=== PATIENT | male | born 1990 | race Caucasian/White ===

== ENCOUNTER 2020-12-04 07:49 | Outpatient (RCR) | payer OTHER, SELFPAY ==
--- NOTE | 2020-12-04 12:34 | MHC.PT.EP ---
[facility] [place] Office [place] Office [place] Office [address] Mariam Aragon [address] [phone] F: [phone] F: [phone] F: [phone] F: [phone] Physical Therapy Plan of Care Date of Evaluation: Date of Surgery: Diagnosis: LBP Assessment: 30 YO MALE REF TO PT FOR LBP, HE NOTES INITIALLY HE HAD BOUTS OF RADICULAR SXS INTO MARY JANE LEs AND MAJORITY OF SXS ARE IN LS REGION (TIGHT/ STIFF). HE WORKS FULL-TIME IN THE [employer]. OBJECTIVE FINDINGS: DENIES SENSORIMOTOR/ BOWEL/BLADDER S&SXS; DECR FLEXIBILITY IN MARY JANE LEs, LIMITED TRUNK AROM, DECR POSTURAL AWARENESS ( MILD Rt THOR Lt LUM SCOL W LLI), AND SIGNIF SOFT TISSUE IRRIT IN MARY JANE L/S AND SACRAL ZONE. FUNCTIONAL LIMITATIONS INCLUDE DECR SELMA TO BENDING TO DRY OFF AFTER SHOWERING/ DONNING SOCKS OR SHOES, INTERM DECR SELMA TO MORE PHYSICALLY DEMANDING TASKS/ AND FITNESS. Pt IS A GOOD PT CANDIDATE TO ADDRESS THE ABOVE, PAIN MGMT, AND DEV HEP TO GUIDE Pt IN SELF- MGMT OF SXS. Frequency and Duration: The patient will be seen 2x WK x 5 WKS Short Term Goals: Pt'S LBP DECR TO 2-3/10 AND LEs SXS DX/ CENTRALIZED BY 75%, REDUCE MARY JANE LS SOFT TISSUE SPASMS IN 2 WKS Pt DEMON INDEP SELF- CORRECT POSTURE AND BODY MECH W 3:3 SIMUL TASKS IN 2 WKS Pt DEMON WFL FLEXIB MARY JANE HS/ HIPS W IMPROVED PELVIC SYMM IN 3 WKS Artist Scientific Goals: Pt REPORT RETURN TO REG ADLS/ CHILDCARE/ FITNESS EVIDENT W IMPROVED OSWESTRY SCORE BY 10 POINTS IN 5 WKS Pt INDEP W HEP AND SELF-SX MGMT STRATEGIES IN 5 WKS Pt DEMON WFL STAB -> MOB W WFL TRUNK AROM/ MOBILITY W THER EXER IN 4 WKS Treatment Plan: Modalities to reduce pain, spasms and effusion. Manual therapy to restore motion and function. Therapeutic exercise to improve strength and flexibility. Neuromuscular re-education for posture and balance. Therapeutic activities to return to functional activities of daily living. Electronically signed by: Abbi Mc,PT Please sign and return to therapist. Thank you for your referral.
--- NOTE | 2020-12-22 08:38 | MHC.PT.DC ---
[facility] [place] Office [place] Office [place] Office [address] Mariam Aragon [address] [phone] F: [phone] F: [phone] F: [phone] F: [phone] Physical Therapy Discharge Report Diagnosis: LBP Date of Surgery: Date of Evaluation: 12/04/20 Date of Discharge: 12/22/20 Treatments to Date: 1 Cancellations to Date: 0 No Shows to Date: 2 Discharge Status: Discharge Summary: Pt PHONED US AND UPDATED OUR DEPT THAT HE SUSTAINED A SHOULDER FRACTURE- PT FOR LBP D/C'D AT THIS TIME 30 YO MALE REF TO PT FOR LBP, HE NOTES INITIALLY HE HAD BOUTS OF RADICULAR SXS INTO MARY JANE LEs AND MAJORITY OF SXS ARE IN LS REGION (TIGHT/ STIFF). HE WORKS FULL-TIME IN THE [employer]. OBJECTIVE FINDINGS: DENIES SENSORIMOTOR/ BOWEL/BLADDER S&SXS; DECR FLEXIBILITY IN MARY JANE LEs, LIMITED TRUNK AROM, DECR POSTURAL AWARENESS ( MILD Rt THOR Lt LUM SCOL W LLI), AND SIGNIF SOFT TISSUE IRRIT IN MARY JANE L/S AND SACRAL ZONE. FUNCTIONAL LIMITATIONS INCLUDE DECR SELMA TO BENDING TO DRY OFF AFTER SHOWERING/ DONNING SOCKS OR SHOES, INTERM DECR SELMA TO MORE PHYSICALLY DEMANDING TASKS/ AND FITNESS. Pt IS A GOOD PT CANDIDATE TO ADDRESS THE ABOVE, PAIN MGMT, AND DEV HEP TO GUIDE Pt IN SELF- MGMT OF SXS. Electronically signed by: Abbi Mc,PT Please sign and return to therapist. Thank you for your referral.
== END 2020-12-22 08:39 | disposition home or self-care (01) ==
LOC: HO.PTCHIC 07:49
PROVIDERS: PCP Internal Medicine; Visit Provider Internal Medicine
DX: M54.5 Low back pain (principal)
CPT/HCPCS: 97110; 97140; 97162

== ENCOUNTER 2021-06-25 09:00 | Outpatient (RCR) | payer OTHER, SELFPAY ==
--- NOTE | 2021-06-25 09:46 | MHC.PT.DC ---
[facility] [place] Office [place] Office [place] Office [address] Ar[address] [phone] F: [phone] F: [phone] F: [phone] F: [phone] Physical Therapy Discharge Report Diagnosis: subacromial impingement of L shoulder Date of Surgery: 12/24/20 Date of Evaluation: 03/05/21 Date of Discharge: 06/25/21 Treatments to Date: 25 Cancellations to Date: 1 No Shows to Date: 1 Discharge Status: Achieved Goals Improved Function Independent with HEP Discharge Summary: Venu comes to PT ready for DC. Would like to perform DC work and hold on all ther-ex today, not because of pain or anything specific/shoulder related. He demos AROM flexion 168, abduction 170, ER 70, IR 55. He demos 4+/5 flexion and abduction MMT but states that he has pain with abduction, 4+/5 ER in 90 degs abd and reports mild pain. 5/5 IR without pain. Lower trap 5/5, mid trap 4/5, upper trap 4/5. Educated on need to stretch lats, IR with strap and continue scapular and shoulder strengthening. Patient understands HEP. DC to HEP. Final SPADI 40 and 56. Patient has met all STG and most of LTG. I in program and does not need skilled PT at this time. Electronically signed by: Maura Whatley, PT Please sign and return to therapist. Thank you for your referral.
== END 2021-06-25 09:46 | disposition home or self-care (01) ==
LOC: HO.PTCHIC 09:00
PROVIDERS: PCP Internal Medicine; Visit Provider Orthopaedic Surgery Sports Medicine
DX: M75.42 Impingement syndrome of left shoulder (principal)
CPT/HCPCS: 97014; 97110; 97140; 97161; 97164

== ENCOUNTER 2021-07-15 09:00 | Outpatient (RCR) | payer OTHER, SELFPAY ==
--- NOTE | 2021-07-07 10:22 | MHC.PT.EP ---
[facility] [place] Office [place] Office [place] Office [address] [phone] F: [phone] F: [phone] F: [phone] F: [phone] Physical Therapy Plan of Care Date of Evaluation: Date of Surgery: n/a Diagnosis: low back pain Assessment: Patient is a 31 year old R handed male who presents with s/s consistent with low back pain. He works with daily job demands including lifting and carrying heavy weights. He is currently on light duty due to shoulder surgery 12/24/20. Patient past medical history is otherwise unremarkable. Current impairments include pain, posture, flexibility, ROM, strength, activity tolerance and functional mobility. Functional limitations include decreased ability to bend, dress, sleep, carry, push, pull and climb ladders. Patient is motivated with good rehab potential. Skilled PT will address impairments and functional limitations in order to achieve goals. Frequency and Duration: The patient will be seen 2x/week for 6 weeks Short Term Goals: I with HEP - 2 weeks 90/90 lacking < 30 b/l - 3 weeks hip flexor flexibility with min restriction - 3 weeks Prison Goals: I with HEP - 6 weeks Lumbar AROM - 100% rotation pain free b/l - 5 weeks Oswestry 20% or less - 6 weeks Treatment Plan: Modalities to reduce pain, spasms and effusion. Manual therapy to restore motion and function. Therapeutic exercise to improve strength and flexibility. Neuromuscular re-education for posture and balance. Therapeutic activities to return to functional activities of daily living. Electronically signed by: Pantera Vazquez, PT Please sign and return to therapist. Thank you for your referral.
--- NOTE | 2022-02-17 08:43 | MHC.PT.DC ---
[facility] [place] Office [place] Office [place] Office [address] [phone] F: [phone] F: [phone] F: [phone] F: [phone] Physical Therapy Discharge Report Diagnosis: low back pain Date of Surgery: n/a Date of Evaluation: 07/07/21 Date of Discharge: 08/21/21 Treatments to Date: 1 Cancellations to Date: No Shows to Date: Discharge Status: Patient Elected to Stop Discharge Summary: Due to other health issues. 07/15/21: added stretching today for rotation, post chain, lat, hip flex. assess response and progress as tolerated. Patient is a 31 year old R handed male who presents with s/s consistent with low back pain. He works with daily job demands including lifting and carrying heavy weights. He is currently on light duty due to shoulder surgery 12/24/20. Patient past medical history is otherwise unremarkable. Current impairments include pain, posture, flexibility, ROM, strength, activity tolerance and functional mobility. Functional limitations include decreased ability to bend, dress, sleep, carry, push, pull and climb ladders. Patient is motivated with good rehab potential. Skilled PT will address impairments and functional limitations in order to achieve goals. Electronically signed by: Pantera Vazquez, PT Please sign and return to therapist. Thank you for your referral.
== END 2022-02-17 08:44 | disposition home or self-care (01) ==
LOC: HO.PTCHIC 09:00
PROVIDERS: PCP Internal Medicine; Visit Provider Internal Medicine
DX: M54.50 Low back pain, unspecified (principal)
CPT/HCPCS: 97110; 97161